=== PATIENT | male | born 1955 | race Caucasian/White ===

== ENCOUNTER → 2023-07-02 10:26 | Outpatient (CLI) | payer MEDICARE, OTHER, SELFPAY ==
[2023-07-02 12:14] LABS: Add Manual Diff / Slide Review NO; Basophils Absolute Auto 0 /uL (0-100); Basophils Percent Auto 1.1 % (0-2); Eosinophils Absolute Auto 100 /uL (0-450); Eosinophils Percent Auto 2.8 % (2-4); Hemoglobin 13.7 g/dL (13.5-17.5); Lymphocytes Absolute Auto 800 /uL (1100-4500); Lymphocytes Percent Auto 17.3 % (25-40); Mean Corpuscular HGB Conc 34.2 % (30-36); Mean Corpuscular Hemoglobin 32.4 PG (26-34); Mean Corpuscular Volume 94.8 fL (80-100); Monocytes Absolute Auto 500 /uL (0-900); Monocytes Percent Auto 11.8 % (3-14); Neutrophils Absolute Auto 3100 /uL (1500-7000); Platelet Count 187 X10^3/uL (150-400); Red Blood Cell Count 4.22 X10^6/uL (4.5-5.9); Red Cell Distribution Width 12.5 % (11.6-14.8); White Blood Cell Count 4.6 X10^3/uL (4.5-11.0)
[2023-07-02 12:28] LABS: BUN Creatinine Ratio 15.3 (6-22); Blood Urea Nitrogen 22 mg/dL (9-20); Calcium 8.8 mg/dL (8.4-10.2); Carbon Dioxide 31 mmol/L (22-32); Chloride 102 mmol/L (98-107); Estimated Glomerular Filt Rate 53 mL/min (>60); Glucose 84 mg/dL (80-110); HEMOLYSIS < 15 (0-50); Potassium 4.5 mmol/L (3.4-5.1); Sodium 137 mmol/L (137-145)
[2023-07-02 13:15] LABS: Appearance Urine UA CLEAR; Bilirubin Urine UA NEGATIVE (NEGATIVE); Color Urine UA YELLOW; Glucose Urine UA NEGATIVE (Negative); Ketones Urine UA NEGATIVE (NEGATIVE); Leukocyte Esterase Urine UA NEGATIVE (NEGATIVE); Nitrite Urine UA NEGATIVE (Negative); Occult Blood Urine UA NEGATIVE (Negative); Protein Urine UA NEGATIVE (Negative); Urobilinogen Urine UA 0.2 E.U./dL (0.2)
[2023-07-02 13:27] LABS: Hemoglobin A1C% w Est Avg Glu 5.4 % (4.0-6.0)
[2023-07-02 13:30] LABS: Bacteria Urine None Seen; Culture Indicated Urine Cult Not Indicated; RBC Urine None Seen (0-5/HPF); Squamous Epithelial Cell Urine None Seen (0-5/HPF); Urine Comments Microscopic Normal; WBC Urine None Seen (0-5/HPF)
== END ==
PROVIDERS: Referring Provider Orthopaedic Surgery; Visit Provider Orthopaedic Surgery
DX: Z01.818 Encounter for other preprocedural examination (principal); R73.9 Hyperglycemia, unspecified; Z01.812 Encounter for preprocedural laboratory examination; N39.0 Urinary tract infection, site not specified
CPT/HCPCS: 36415; 80048; 81001; 83036; 85025; 93005

== ENCOUNTER → 2023-07-28 12:01 | Outpatient (CLI) | payer MEDICARE, OTHER, SELFPAY ==
[2023-07-28 13:13] LABS: Add Manual Diff / Slide Review NO; Basophils Absolute Auto 100 /uL (0-100); Basophils Percent Auto 1.3 % (0-2); Eosinophils Absolute Auto 200 /uL (0-450); Eosinophils Percent Auto 3.8 % (2-4); Lymphocytes Absolute Auto 800 /uL (1100-4500); Lymphocytes Percent Auto 19.9 % (25-40); Mean Corpuscular HGB Conc 33.4 % (30-36); Mean Corpuscular Volume 95.7 fL (80-100); Monocytes Absolute Auto 500 /uL (0-900); Monocytes Percent Auto 12.1 % (3-14); Neutrophils Absolute Auto 2600 /uL (1500-7000); Neutrophils Percent Auto 62.9 % (50-75); Platelet Count 198 X10^3/uL (150-400); Red Blood Cell Count 4.38 X10^6/uL (4.5-5.9); Red Cell Distribution Width 12.9 % (11.6-14.8); White Blood Cell Count 4.2 X10^3/uL (4.5-11.0)
[2023-07-28 13:45] LABS: Alanine Aminotransferase 22 IU/L (<50); Albumin 4.2 g/dL (3.5-5.0); Albumin Globulin Ratio 1.6 (1.0-2.8); Alkaline Phosphatase 65 U/L (38-126); Aspartate Aminotransferase 26 IU/L (17-59); BUN Creatinine Ratio 16.5 (6-22); Bilirubin Total 0.5 mg/dL (0.2-1.3); Blood Urea Nitrogen 21 mg/dL (9-20); Calcium 9.3 mg/dL (8.4-10.2); Carbon Dioxide 30 mmol/L (22-32); Chloride 101 mmol/L (98-107); Cholesterol 185 mg/dL (140-199); Estimated Glomerular Filt Rate > 60 mL/min (>60); Globulin 2.6 g/dL (1.7-4.1); Glucose 86 mg/dL (80-110); HDL Cholesterol 95 mg/dL (40-60); HEMOLYSIS < 15 (0-50); LDL Cholesterol Calculated 71 mg/dL (<100); Potassium 4.7 mmol/L (3.4-5.1); Sodium 138 mmol/L (137-145); Total Protein 6.8 g/dL (6.3-8.2); Triglycerides 97 mg/dL (35-150)
== END ==
PROVIDERS: PCP Family Medicine; Referring Provider Family Medicine; Visit Provider Family Medicine
DX: Z00.00 Encounter for general adult medical examination without abnormal findings (principal); Z12.5 Encounter for screening for malignant neoplasm of prostate
CPT/HCPCS: 36415; 80053; 80061; 85025; G0103

== ENCOUNTER 2023-09-23 07:57 | Day surgery (SDC) | payer MEDICARE, OTHER, SELFPAY ==
[2023-09-16 09:30] VITALS: BMI 20.2
[2023-09-23] VITALS (12 sets, daily range): BP systolic 103–144; BP diastolic 53–74; PULSE 60–88; RESP 12–98; TEMP 36.2–36.8; O2SAT 14–100; BMI 20.2
[2023-09-23] MEDS: ACETAMINOPHEN 325 MG TABLET 975 MG PO (08:23)
[2023-09-23] MEDS: LACTATED RINGERS 1,000 ML 42 ML IV ×3 (08:37→12:11)
[2023-09-23] MEDS: VANCOMYCIN 1,000 MG/200 ML PIGGYBACK 200 MG IV (09:17)
--- NOTE | 2023-09-23 09:35 | P.OP_ITS ---
Operative Date/Time/Diagnoses Date of procedure: 09/23/23 Time of procedure: 10:30 Pre-op diagnosis: Left hip osteoarthritis severe Post-op diagnosis: same Procedure & Clinicians Procedure: Left total hip arthroplasty anterior approach Same procedure as scheduled: Yes Indications: The patient has had progressively worsening left hip pain with radiographic changes consistent with arthritis. Non-operative management has failed and the patient has requested total hip replacement. The risks, benefits and alternatives to surgery were discussed with the patient prior to proceeding. Risks discussed included, but were not limited to, failure to relieve pain, leg length discrepancy, dislocation, stiffness, infection, nerve damage, deep venous thrombosis, pulmonary embolism, stroke, coma, heart attack, permanent paralysis and , as well as the potential need for eventual revision of the prosthetic. Surgeon: Adelita Victor Chief Telephone Operator: Franko Perez Anesthesia Type: General and Spinal Operative Notes Findings: Severe left hip OA, adequate bone, adequate stability Closure Type: primary Specimen(s): none sent Prosthetic devices, grafts, tissues, transplants, or devices: Victor and nephew 64 R3, neutral poly liner,two 6.5 mm screws, polar stem lateral with collar size 7, 40 +8 Oxinium head Estimated Blood Loss (mL): 250 Blood products transfused: none Procedure in detail: The patient was brought to the operating room. Patient was carefully positioned in the supine position. Time-out was performed and antibiotics were given. Anesthesia was induced. He was positioned in the on the table in order to allow hyperextension of the hip. The left lower extremity was prepped and draped in a standard sterile fashion. An anterior left hip incision was made 1 fingerbreadth lateral to the anterior superior iliac spine and extended distally towards the greater trochanter. Dissection was carried out through skin and subcutaneous tissues. Superficial hemostasis was achieved. The fascia over the tensor fascia alexey was defined and incised with a knife. Two Allis clamps were used to grasp the fascia. Tensor fascia alexey was retracted laterally. A gelpi retractor was placed. Dissection was carried out down along the neck. The circumflex vessels were carefully identified and cauterized with the Aqua Mantis. A PA was used during the procedure and was essential for intraoperative retraction and safe implantation of the components. There was good visualization of the femoral neck. A Cobra was placed superior to the neck and the gluteus fibers were carefully stripped from that superior a spect of the capsule. A 2nd retractor was placed along the inferior aspect of the neck. The rectus insertion along the capsule was partially released. A 3rd retractor that was then gently placed over the rim of the acetabulum under the rectus. Capsule was carefully incised and released from the intertrochanteric line circumferentially superior to the mid sagittal line and inferiorly to the mid sagittal line until the lesser trochanter was palpable. A tag stitch was placed both in the superior and inferior limb of the capsular insertion. Along the acetabulum capsule was also released up to the mid sagittal 12:00 position. A portion of the labrum was resected. A saw was used to perform an osteotomy at the level of the intertrochanteric line and the junction of the superior femoral neck leaving approximately 1 finger breath of residual inferior neck above the lesser trochanter. A 2nd cut was made along the femoral neck at the base of the head and a napkin ring of neck was removed. Corkscrew was placed in the femoral head and the head was removed without difficulty. Retractors were then repositioned around the acetabulum. Residual labrum was resected and additional osteophytes were removed. A reamer that was 4 mm below the templated size was placed by hand in the acetabulum and it was reamed to centralize the acetabulum. It was then reamed up to 2 under the templated size and fluoroscopy was brought in to confirm the position of the reaming and depth of reaming. I reamed 1 under the anticipated size. A trial cup was placed and noted that it was appropriately sized and fluoroscopy confirmed position and depth. The component was open and inserted without difficulty fluoroscopic imaging was used to confirm that the cup had been adequately seated and was well positioned. It was further stabilized with two screws. Neutral poly liner was placed. The cup was tested and noted to be stable. Attention was then directed to the femur. The femur was gently hyperextended additional capsular release was performed as needed in order to allow adequate visualization of the proximal femur with elevation of the femur. Patient was placed in a hyperextended slightly adducted position with maximum external rotation. Box osteotome was used to check for any residual neck as well as sclerotic bone along the trochanter. [place] pepper was placed in the femur. Additional broaching was performed. Canal finder was used to determine the alignment of the canal and position. Size 1 broach was placed. The canal was then appropriately broached up to the templated size as long as there was adequate stability of the broach and serial advancement of the broach without excessive impingement. Specific attention was directed at avoiding varus attempting to direct the distal aspect of the broach more anteriorly and avoiding excessive anteversion. Trial reduction showed acceptable range of motion, good stability, no posterior impingement, nondenominational of leg length and appropriate lateral shuck. I also hyperflexed the hip and checked that there was no impingement anteriorly and there was good stability with flexion, adduction and internal rotation. The stem was placed without difficulty. Repeat trial reduction and x-ray showed acceptable overall position, length, and no evidence of the femoral fracture. Final head was placed. Wound was meticulously irrigated with normal saline. The hip was reduced and additional Exparel and Marcaine were injected. The capsule was closed with interrupted nonabsorbable sutures. The fascia of the tensor was closed with interrupted and running Vicryl. No drain was placed. Any tensor fascia alexey muscle that appeared to be contused or injured which was a minimal amount was carefully resected. Capsule around the tensor was injected with Exparel and Marcaine. The skin was closed with barbed stitches for the subcutaneous tissue and skin. We also used surgical glue. The wound was dressed sterilely. Brief Betadine soak was also used and was meticulously irrigated with normal saline. Patient was transferred to recovery room in satisfactory condition. Complications: none Post-operative Condition: stable Disposition: Acute Care Plan for aftercare: The patient will be maintained on a standard total hip replacement protocol with weight bearing as tolerated and anterior hip precautions. The patient will receive Aspirin and sequential compression devices for DVT prophylaxis. The patient will be discharged home when safe for the home environment.
--- NOTE | 2023-09-23 09:35 | PM.PREOP ---
Pre-operative Note Interval Note History & Physical reviewed/Exam performed by Physician: Yes Changes to H&P: No
[2023-09-23] MEDS: CEFAZOLIN 2 GM/100 ML PREMIX 100 ML IV (10:25)
[2023-09-23] MEDS: TRANEXAMIC ACID 1,000 MG VIAL 1000 MG INJ (10:30)
--- NOTE | 2023-09-23 10:50 | SUR.OPER ---
Supine on padded [place] table with bilateral legs secured in padded positioning boots and suspended in positioning spars, operative leg in traction per surgeon. Head on one pillow. Arm on non-operative side secured on padded armboard <90 degrees abduction. Arm on operative side padded and resting across chest then secured with tape over sheet. Padded perineal post in place per surgeon.
[2023-09-23] MEDS: BUPIVACAINE LIPOSOME 266 MG/20 ML VIAL INJ (10:54)
[2023-09-23] MEDS: BUPIVACAINE 0.25% (PF) 60 ML, EPINEPHrine 0.3 MG INJ (10:55)
--- NOTE | 2023-09-23 13:00 | DI.RAD.S_ITS ---
PATIENT NAME: CHAGO BENSON : 1955 EXAM DATE: 09/23/2023 13:[address] RODOLFO GUZMAN CC: ROMAINE NOGUERA M.D. MODALITY: CR PATIENT TYPE: Out CONTRAST MEDIA: STATION ID: [id number] FLUORO TIME: PROCEDURE: XR HIP W PEL IF DONE LT 2V INDICATIONS: POST OP ANTERIOR LEFT HIP TECHNIQUE: AP pelvis and lateral view of the left hip acquired. COMPARISON: [facility], , XR HIP W PEL IF DONE LT 2V, 09/23/2023, 11:26. FINDINGS: Bones: Patient is status post left hip arthroplasty, with hardware components in expected positions. The hip joint appears congruent. The visualized bony structures appear intact. Moderate to severe right hip arthritic changes Soft tissues: Overlying postoperative changes are noted. No suspicious soft tissue densities. IMPRESSION: Expected post-operative appearance of a hip arthroplasty. Approved by: Chago Guerrero M.D. on 09/23/2023 at 14:06
[2023-09-23] MEDS: HYDROMORPHONE 1 MG INJ IV ×4 (13:06→13:50)
[2023-09-23] MEDS: OXYCODONE IR 5 MG TABLET PO (13:19)
--- NOTE | 2023-09-23 13:30 | DI.RAD.S_ITS ---
PROCEDURE: XR HIP W PEL IF DONE LT 2V INDICATIONS: POST OP ANTERIOR LEFT HIP TECHNIQUE: AP pelvis and lateral view of the left hip acquired. COMPARISON: [facility], MICHAEL, XR HIP W PEL IF DONE LT 2V, 09/23/2023, 11:26. FINDINGS: Bones: Patient is status post left hip arthroplasty, with hardware components in expected positions. The hip joint appears congruent. The visualized bony structures appear intact. Moderate to severe right hip arthritic changes Soft tissues: Overlying postoperative changes are noted. No suspicious soft tissue densities. IMPRESSION: Expected post-operative appearance of a hip arthroplasty. Approved by: Chago Guerrero M.D. on 09/23/2023 at 14:06
--- NOTE | 2023-09-23 13:47 | SUR.PHASEI ---
Pt on IV bag #3. Attempted to void without success. Bladder scan for 904ml. Straight cathed for 900ml clear yellow urine.
--- NOTE | 2023-09-23 14:12 | SUR.PHASEI ---
Report called to SHAWN Gautam. 2 belonging bags and walker brought to room. glasses returned to pt.
[2023-09-23] MEDS: ACETAMINOPHEN 325 MG TABLET 650 MG PO (14:53)
[2023-09-23] MEDS: IBUPROFEN 400 MG TABLET PO ×2 (14:54→18:16)
--- NOTE | 2023-09-23 15:12 | PC.NURSE ---
Pt to room 217 via bed from PACU. Pt is awake, alert, and oriented. Pt states pain to his left hip is 4/10 and improving. Ice pack to left hip. Aquacell to left hip cdi with single dot of shadow drainage to upper portion. Pt is now eating a yogurt and has fresh water to drink. Pt denies nausea or shortness of breath. O2 sat 100% on RA. Pt oriented to room, call light, bed controls, and tv controls. SCD's on and running. IVF infusing as ordered. Bed alarm on for safety. Pt agrees to call for assistance as needed.
--- NOTE | 2023-09-23 15:49 | OT.IP.EVAL ---
Current Diagnoses Unilateral primary osteoarthritis, left hip (09/23/23) Surgery Performed Operation Date: 09/23/23 10:15 Actual Procedures p Total Hip Arthroplasty/Anterior Approach(Left) - Adelita Victor MD Past Medical History (Last Updated 09/16/23 @ 10:13 by Juani Campo, RN) BCC (basal cell carcinoma) History of COVID-19 (04/2022) Measles (~1960) Osteoarthritis (~2014) Rheumatoid arthritis (~2014) Surgical History (Last Updated 09/16/23 @ 10:06 by Juani Campo RN) Anesthesia History of fusion of cervical spine History of hernia repair History of tracheostomy as a child Occupational Therapy Inpatient Evaluation/Re-Eval M1 PT/OT-IP Prior Functional Status Start: 09/23/23 16:17 Freq: NEEDED Status: Active Protocol: Document 09/23/23 15:49 [facility] (Rec: 09/23/23 16:29 [facility] [id number]) Medical Review Prior Functional Status Medical History Reviewed Yes Diet/Fluid Consistency Regular Communication Pt is able to express all needs. Mobility and Gait Pt ambulated IND, but was sometimes limited in walking distance by hip pain. Activities of Daily Living and IADL's Able to perform all ADLs and IADLs. Social History Household Members none Living Arrangements House Number of Floors (Floors) One Floor Number of Stairs To Enter/Railing? 3 steps with bilateral hand rails for porch then 2 MAREK with left hand rail Home Environment High Toilet,Tub/Shower Home Equipment Front Wheel Walker,Straight Cane,Raised Toilet Seat w/ Armrests,Shower Seat without Backrest,Hand Held Shower Additional Social History Comment Pt reports a friend will be assisting him with IADLs. M2 OT-IP Current Condition Start: 09/23/23 16:17 Freq: Status: Active Protocol: Document 09/23/23 15:49 [facility] (Rec: 09/23/23 16:29 [facility] [id number]) Occupational Therapy Current Condition Current Condition Evaluation Date 09/23/23 Treatment Diagnosis S/P LTHA Anterior Diagnosis Onset Date 09/23/23 Post Operative Precautions Anterior Hip Precautions No Hip Extension,No Hip External Rotation M3 OT- IP Subjective and Pain Start: 09/23/23 16:17 Freq: Status: Active Protocol: Document 09/23/23 15:49 [facility] (Rec: 09/23/23 16:29 [facility] [id number]) OT- Subjective Occupational Therapy Visit Type Type Initial Evaluation Visit Start Time 15:49 Visit Stop Time 16:05 Total Visit Minutes 16 Occupational Therapy Visit Comments Patient Comments Pt sitting on the toilet when OT came to see pt as pt just completed seeing PT. Patient/Caregiver Goals To go home. OT Pain Assessment Pain When Pain Assessed During Mobility Pain Present Pain Present Pain Reported Location *left hip Intensity 2 Scale Used Numeric (0 - 10) M4 OT- IP ADL's Start: 09/23/23 16:17 Freq: Status: Active Protocol: Document 09/23/23 15:49 [facility] (Rec: 09/23/23 16:29 [facility] [id number]) OT GMM-Ulay-Mfhddre General Evaluation Self-Feeding Ability Independent OT ADL-Grooming Comments OT Grooming Comments Not performed. OT ADL-Oral Care Comments Oral Care Comments Not performed. OT ADL-Dressing Comments OT Dressing Comments Pt still a little numb and needing use of his right hand to help lift up his RLE at this time. Pt able to bend over to reach his socks appropriately at this time. OT ADL-Toileting Comments OT Toileting Comments Pt not been able to urinate since being cathed post op per pt. M5 OT- IP IADL's Start: 09/23/23 16:17 Freq: Status: Active Protocol: Document 09/23/23 15:49 [facility] (Rec: 09/23/23 16:29 [facility] [id number]) OT-Instrumental Activities of Daily Living Deficits IADL Deficits Identified Deficits Home Safety Awareness Awareness of Need for Assistance at Home Good Awareness Ability to Problem Solve Emergency Able to Problem Solve Situations Medication Management Medication Management No Deficits Identified Money Management Money Management No Deficits Identified Meal Preparation Meal Preparation Comments Pt states has a small kitchen and will be able to reach items appropriately. Machine Tech Machine Tech Comments Pt's friend to assist. M6 OT- IP Functional Cognition Start: 09/23/23 16:17 Freq: Status: Active Protocol: Document 09/23/23 15:49 [facility] (Rec: 09/23/23 16:29 [facility] [id number]) Cognitive Factors Limiting Selfcare Function Cognitive Ability Level of Alertness Alert Patient Orientation Name,Age,Birthday,Month,Date, Year,Day of Week,Place, Situation Attention Span Ability Capable of Focused Attention, Capable of Sustained Attention Ability to Follow Commands Able to Follow Multi-Step Commands Memory Description No Deficits Noted Safety Awareness No Deficits Noted Cognitive Comments Cognitive Assessment Comments Pt intact. OT- Vision and Hearing OT- Hearing Assessment OT- Hearing Assessment WFL OT- Vision Assessment Visual Acuity Glasses All The Time M7 OT- IP Mobility and Balance Start: 09/23/23 16:17 Freq: Status: Active Protocol: Document 09/23/23 15:49 [facility] (Rec: 09/23/23 16:29 [facility] [id number]) OT-Transfer Assessment Sit to and From Stand Sit to and from Stand Standby Assistance Transfers Transfer Ability Standby Assistance Technique Transfer Destination Bed,Toilet Transfer Technique Stand Step Pivot Devices Transfer Assistive Devices Gait Belt,Front Wheeled Walker Comments Mobility Comments SBA to come to stand and walk to the bed to sit down with the FWW. OT- Balance Assessment Sitting Balance and Reactions Static Sitting Balance Ability Normal Dynamic Sitting Balance Ability Normal Standing Balance and Reactions Static Standing Balance Ability Normal Dynamic Standing Balance Ability Good M9 OT- IP Assessment and Plan Start: 09/23/23 16:17 Freq: Status: Active Protocol: Document 09/23/23 15:49 [facility] (Rec: 09/23/23 16:29 [facility] [id number]) OT Summary Assessment and Plan Potential Rehabilitation Potential Excellent Analytic Complexity at Evaluation Low Summary OT Impairments Pain,Balance,Functional Mobility,Dressing,Toileting, Bathing,Shower Transfers Progress Towards Goals Progressing Toward Goals,Slow Progress due to Medical Issues Assessment Summary Pt low complexity and main barrier are pt still feeling numb in perineal area and decreased movement to lift his RLE up for dressing needs and needing use of his hands to assist at this time. Pt states does not have the sensation to urinate at this time. Pt states was cathed earlier in the post op. Pt has good understanding for his hip precautions. Pt to go home with assist and outpt PT when medically stable . Goals Dressing Goal Independent Toileting Goal Independent Bathing Goal Independent Toilet Transfer Goal Independent Shower Transfer Goal Independent Days to Meet Goals 2 Frequency of Treatment Frequency Of Treatment Once a Day Discharge Recommendations OT Discharge Recommendations Home with Assistance, Outpatient PT Transportation Needs at Discharge Private Vehicle
--- NOTE | 2023-09-23 15:49 | PT.IIE ---
Current Diagnoses Unilateral primary osteoarthritis, left hip (09/23/23) Surgery Performed Operation Date: 09/23/23 10:15 Actual Procedures p Total Hip Arthroplasty/Anterior Approach(Left) - Adelita Victor MD Surgical History (Last Updated 09/16/23 @ 10:06 by Juani Campo, RN) Anesthesia History of fusion of cervical spine History of hernia repair History of tracheostomy as a child Medical History (Last Updated 09/16/23 @ 10:13 by Juani Campo RN) BCC (basal cell carcinoma) History of COVID-19 (04/2022) Measles (~1959) Osteoarthritis (~2014) Rheumatoid arthritis (~2014) Physical Therapy Inpatient Evaluation/Re-Eval M1 PT/OT-IP Prior Functional Status Start: 09/23/23 15:52 Freq: NEEDED Status: Active Protocol: Document 09/23/23 15:53 AB (Rec: 09/23/23 16:14 AB [id number]) Medical Review Prior Functional Status Medical History Reviewed Yes Diet/Fluid Consistency Regular Communication Pt is able to express all needs. Mobility and Gait Pt ambulated IND, but was sometimes limited in walking distance by hip pain. Activities of Daily Living and IADL's Able to perform all ADLs and IADLs. Social History Household Members none Living Arrangements House Number of Floors (Floors) One Floor Number of Stairs To Enter/Railing? 3 steps with bilateral hand rails for porch then 2 MAREK with left hand rail Home Environment High Toilet,Tub/Shower Home Equipment Front Wheel Walker,Straight Cane,Raised Toilet Seat w/ Armrests,Shower Seat without Backrest,Hand Held Shower Additional Social History Comment Pt reports a friend will be assisting him with IADLs. M2 PT-IP Current Condition Start: 09/23/23 15:52 Freq: NEEDED Status: Active Protocol: Document 09/23/23 15:53 AB (Rec: 09/23/23 16:14 AB [id number]) Physical Therapy Current Condition Current Condition Evaluation Date 09/23/23 Treatment Diagnosis s/p left anterior ALISON Onset Date 09/23/23 M3 PT-IP Subjective Start: 09/23/23 15:52 Freq: NEEDED Status: Active Protocol: Document 09/23/23 15:53 AB (Rec: 09/23/23 16:14 AB [id number]) Subjective Physical Therapy Visit Type Type Initial Evaluation Visit Start Time 15:09 Visit Stop Time 15:49 Total Visit Minutes 40 Physical Therapy Visit Comments Patient Comments Pt presents long sitting in bed after handoff from RN. He is agreeable to PT, and denies symptoms but reports he continues with a lot of numbness in his buttocks/hip/ groin. Therapy Pain Assessment Pain When Pain Assessed During Mobility Pain Present Pain Present Denied Pain M4 PT-IP Mobility and Gait Start: 09/23/23 15:52 Freq: NEEDED Status: Active Protocol: Document 09/23/23 15:53 AB (Rec: 09/23/23 16:14 AB [id number]) PT-Bed Mobility Assessment Supine to Sit Supine to Sit Independent Scooting Scooting to Edge of Bed Independent PT-Transfer Assessment Sit to and From Stand Sit to and from Stand Standby Assistance,Use of Upper Extremities Equipment Transfer Assistive Device Gait Belt,Front Wheeled Walker Transfers Transfer Destination Toilet Transfer Technique ambulated Transfer Ability Level of Assist Standby Assistance,Use of Upper Extremities Comments Mobility Comments The pt was positioned supine in bed, where BP is 124/59 mmHg. The pt performed bed mobility with independence while maintaining precautions. Once at EOB, the pt's BP is 110/61 and pt is asymptomatic. The pt performs STS with FWW and SBA and verbal cues for proper hand placement. In standing, the pt's BP is 120/ 74 and again denies symptoms. The pt ambulated 90ft with FWW and SBA, with PT providing cues regarding hip precautions while ambulating as well as proper use of FWW. The pt then performed 2x3 steps and ambulated 80ft back to room with SBA and FWW. Upon returning to room, the pt ambulated to toilet and performed stand to sit with SBA and grab bar. OT then entered room to perform eval, and pt was handed off to OT. RN was notified of findings. Gait Assessment Gait Gait Assistance Required: Standby Assistance Distance (Feet) 160 Able to Maintain Weight Bearing Status Yes During Gait Assistive Devices Assistive Device Gait Belt,Front Wheeled Walker Gait Deviations General Gait Pattern Antalgic,Decreased Stride Length,Decreased Feet Clearance,Step-to Gait Factors Limiting Gait Function Factors Limiting Gait Function Decreased Activity Tolerance, Decreased Sensation,Decreased Strength,Limited Range of Motion,Pain Comments Gait Comments See mobility comments. Pt's LLE is positioned in external rotation, though pt reports this is normal for him. Pt is able to maintain hip precautions after education. Stair Climbing Assessment Evaluation Level of Assist On Stairs Standby Assistance Devices Stair Climbing Assistive Devices Left Railing,Right Railing Technique/Endurance Stair Climbing Direction Ascend and Descend Stair Climbing Technique Step to Step Number of Steps Climbed 3 Query Text: Stair Climbing Set # Repetitions (reps) 2 Comments Stair Climbing Comments Pt ascended/descended 3 steps using bilateral hand rails and then 3 steps using left hand rail to simulate home environment. PT-Balance Assessment Sitting Balance and Reactions Static Sitting Balance Ability Normal Dynamic Sitting Balance Ability Normal Standing Balance and Reactions Static Standing Balance Ability Normal Dynamic Standing Balance Ability Good Device Used FWW M5 PT-IP Objective Assessments Start: 09/23/23 15:52 Freq: NEEDED Status: Active Protocol: Document 09/23/23 15:53 AB (Rec: 09/23/23 16:14 AB [id number]) Orientation Orientation/Cognition Level of Alertness Alert Orientation Name,Age,Birthday,Month,Date, Year,Day of Week,Place, Situation Language Function Ability No Deficits Noted Safety Awareness Understands Safety Issues Memory Description No Deficits Noted Gross Range of Motion Upper Extremity ROM Assessment Within Functional Limits Lower Extremity ROM Assessment Left Impaired Strength Upper Extremity Strength Assessment Within Functional Limits Lower Extremity Strength Assessment Left Impaired M6 PT-IP Treatment Start: 09/23/23 15:52 Freq: NEEDED Status: Active Protocol: Document 09/23/23 15:53 AB (Rec: 09/23/23 16:14 AB [id number]) Physical Therapy Treatment Education Education Provided Precautions,Weight Bearing Status,Post-Op Packet,Safety Brace Education Patient M7 PT-IP Assessment and Plan Start: 09/23/23 15:52 Freq: NEEDED Status: Active Protocol: Document 09/23/23 15:53 AB (Rec: 09/23/23 16:14 AB [id number]) PT Summary Assessment and Plan Potential Rehabilitation Potential Excellent Status of Condition at Evaluation Stable Summary Impairments Pain,ROM,Strength,Balance, Sensation,Cognition,Bed Mobility,Transfers,Gait, Activity Tolerance Assessment Summary Chago Kearns is a 68 year old male patient who is s/p left anterior ALISON performed on . The pt is able to perform bed mobility independently, but required SBA and PT to provide verbal cues and education for STS, transfers, ambulation and stairs. The pt is able to ambulate 160ft with FWW, and ascends/descends 6 steps. Based on the pt's current level of function, PT recommends discharge home with assistance and outpatient pt to improve post operative outcomes. The pt would benefit from skilled PT until discharge to improve to his highest level of function. Goals Bed Mobility Goal Independent Transfer Goal Independent,Front Wheeled Walker Gait Goal Independent,Front Wheel Walker Gait Distance 300 Other Goals Pt to ambulate 300ft with Christine /independence using LRAD or no AD to show improving tolerance to activity. Pt to ascend/descend 3 steps with 2 hand rails and 3 steps with 1 hand rail independently to show improving LE strength . Days to Meet Goals 5 Frequency of Treatment Frequency Of Treatment Twice a Day Treatment Plan Physical Therapy Treatment Plan Bed Mobility Training,Transfer Training,Gait Training, Therapeutic Exercise,Balance Retraining,Post Op Education, Discharge Planning,Hot or Cold Pack,Neuromuscular Re-ed, Coordination Retraining,Manual Therapy Precautions Anterior Hip Precautions No Hip Extension,No Hip External Rotation Weight Bearing Status Weight Bearing Status Weight Bear as Tolerated Recommendations To Nursing Amount of Assist Needed Standby Assistance Discharge Recommendations PT Discharge Recommendations Home with Assistance, Outpatient PT Transportation Needs at Discharge Private Vehicle
--- NOTE | 2023-09-23 18:37 | PC.NURSE ---
Pt is dressed and ready for discharge home with Friend Laura. IV has been removed. Went over d/c instructions with Pt and Friend. Discussed d/c meds, time of last dose, reviewed stroke education, s/s of infection, showering, maintaining dsg, drinking plenty of fluids to prevent constipation or dehydration, no driving until cleared by his doctor, and follow up as directed. Pt denied further questions and was taken out via w/c by CHAIR UPHOLSTERER to POV with friend and all belongings.
== END 2023-09-23 18:44 | disposition home or self-care (01) ==
LOC: OR 08:00 → AC 08:01
PROVIDERS: PCP Family Medicine; Referring Provider Orthopaedic Surgery; Visit Provider Orthopaedic Surgery
PROC: (CPT 27130; principal; 2023-09-23 10:15)
DX: M16.12 Unilateral primary osteoarthritis, left hip (principal)
CPT/HCPCS: 27130; 73502; 76000; 97161; 97165; 97535; C1776; C9290; J0171; J0690; J1100; J1170; J2405; J2704

== ENCOUNTER 2024-08-10 12:13 | Day surgery (SDC) | payer MEDICARE, OTHER, SELFPAY ==
[2023-09-23 14:40] VITALS: BMI 20.2
--- NOTE | 2024-08-10 | PATH_ITS ---
[facility] Accession Number: [id number] No. of containers..01 Tissue . 01 Material submitted: . colon - DESCENDING COLON POLYP . 01 Diagnosis: DESCENDING COLON POLYP: Tubular adenoma. STO 08/12/2024 1530 Local . 01 Electronically signed: . Eliud Chavis MD, Pathologist NPI- [id number] . 01 Gross description: . DESCENDING COLON POLYP: Received in formalin is 1 fragment(s) of cummings, soft tissue measuring 0.5 x 0.4 x 0.1 cm submitted entirely in 1 cassette(s) /FIDELINA 08/12/2024 1530 Local . 01 Pathologist provided ICD-10: D12.4 . 01 CPT . 407614 Specimen Comment: A courtesy copy of this report has been sent to [phone] Performed at: [address] [facility] [id number] MD Eliud Chavis MD Phone: [phone]
--- NOTE | 2024-08-10 12:29 | PM.HP.1 ---
History of Present Illness History of Present Illness Date Patient Seen: 08/10/24 Time Patient Seen: 12:29 Chief complaint: Colonoscopy Narrative: 69-year-old man here for 1st time screening colonoscopy. No family history of colon cancer. Occasional rectal bleeding. [facility] Medical History BPH (benign prostatic hyperplasia) History of COVID-19 (04/2022) BCC (basal cell carcinoma) Rheumatoid arthritis (~2014) Osteoarthritis (~2014) Measles (~1960) Surgical History History of tracheostomy as a child History of fusion of cervical spine Anesthesia History of hernia repair Family History Brother Cancer Social History household members: none Smoking Status: Former smoker alcohol intake: former Meds Home Medications and Allergies Home Medications Medication Instructions Recorded Confirmed Type tamsulosin 0.4 mg capsule 0.4 mg PO BEDTIME #90 caps 08/26/23 08/10/24 Rx oxybutynin chloride 5 mg 5 mg PO BEDTIME #90 tabs 10/22/23 08/10/24 Rx tablet,extended release 24 hr Allergies Allergy/AdvReac Type Severity Reaction Status Date / Time No Known Drug Allergies Allergy Verified 08/10/24 12:42 Exam Narrative Exam Narrative: General adult man alert oriented no acute distress Chest nonlabored respiration Extremities warm well perfused Assessment & Plan Assessment & Plan narrative: The patient requires colorectal screening and colonoscopy is recommended. Technical details were discussed. Risks, benefits, alternatives explained. Risks including but not limited to myocardial infarction, aspiration, bleeding, pain, missed lesion, incomplete examination, need for further radiographic studies, intestinal injury, and need for major abdominal surgery were discussed. All questions were answered to their satisfaction, and they are in agreement with this plan. Time-Based Coding :: [TOTAL MINUTES] spent with patient and on the chart (including review of chart, obtaining history, exam, reviewing outside data, placing orders, documenting exam and treatment plan, and counseling patient) on [DATE].
--- NOTE | 2024-08-10 12:39 | P.OP.COLON_ITS ---
Operative Date/Time/Diagnoses Date of procedure: 08/10/24 Time of procedure: 12:39 Pre-op diagnosis: Colorectal screening Procedure & Clinicians Study performed: Screening colonoscopy Same procedure as scheduled: Yes Indications: Screening Surgeon: Stone Watson Procedure Notes Procedure in detail: The history and physical was performed/updated and the patient is ASA class is 2. The procedure was discussed in detail with the patient. Potential risks complications including infection, bleeding, missed diagnosis, perforation, need for surgery, and were explained. Their questions were answered and informed consent was obtained. Patient was brought to the procedure room and placed standard monitoring equipment. The patient's vital signs were monitored continuously throughout the entire procedure. Prior to starting time-out was performed. The patient was placed in the left lateral recumbent position. Procedural sedation was administered by anesthesia. Examination began with a thorough inspection of the perianal area there was no evidence of fissures, fistulae, external hemorrhoids or cutaneous malignancy. The colonoscopy scope was then placed into the anal canal and was advanced to the cecum, which was identified by the ileocecal valve, the appendiceal orifice and the confluence of the taenia. The scope was then slowly withdrawn examining colon thoroughly in all directions, irrigating it of any residual stool. The scope was retroflexed within the rectum The patient tolerated the procedure well. They will be discharged once criteria are met. The prep was of good/excellent quality. The withdrawl time was 9 minutes. FINDINGS * 3 mm descending colon polyp removed with forceps Specimen(s): other (descending colon polyp) Impression: colonic polyp x 1 Post-procedure Plan for aftercare: Follow up dependent on pathology findings Disposition: same day surgery
[2024-08-10] MEDS: LACTATED RINGERS 1,000 ML 42 ML IV (12:40)
[2024-08-10 12:52] VITALS: BP 123/72; PULSE 66; RESP 12; TEMP 36.3; O2SAT 100
[2024-08-10 13:44] VITALS: BP 96/57; PULSE 56; RESP 12; TEMP 36.2; O2SAT 96
[2024-08-10 13:50] VITALS: BP 93/57; PULSE 70; RESP 12; O2SAT 99
[2024-08-10 13:53] VITALS: BP 98/56; PULSE 65; RESP 13; TEMP 36.3; O2SAT 98
== END 2024-08-10 14:10 | disposition home or self-care (01) ==
PROVIDERS: PCP Family Medicine; Referring Provider Surgery; Visit Provider Surgery
PROC: 0DJD8ZZ Inspection of Lower Intestinal Tract, Via Natural or Artificial Opening Endoscopic (ICD-10-PCS; CPT 45378; principal; 2024-08-10 13:45)
DX: Z12.11 Encounter for screening for malignant neoplasm of colon (principal); D12.4 Benign neoplasm of descending colon
CPT/HCPCS: 45380; J2704

== ENCOUNTER → 2025-01-22 09:18 | Outpatient (CLI) | payer MEDICARE, OTHER, SELFPAY ==
[2023-09-23 14:40] VITALS: BMI 20.2
[2025-01-22 10:53] LABS: Hematocrit 42.1 % (41-53); Hemoglobin 14.1 g/dL (13.5-17.5); Mean Corpuscular HGB Conc 33.5 % (30-36); Mean Corpuscular Hemoglobin 31.7 PG (26-34); Mean Corpuscular Volume 94.6 fL (80-100); Platelet Count 193 X10^3/uL (150-400); Red Blood Cell Count 4.45 X10^6/uL (4.5-5.9); Red Cell Distribution Width 13.2 % (11.6-14.8)
[2025-01-22 11:40] LABS: Alanine Aminotransferase 39 IU/L (<50); Albumin 4.2 g/dL (3.5-5.0); Albumin Globulin Ratio 1.7 (1.0-2.8); Alkaline Phosphatase 66 U/L (38-126); Aspartate Aminotransferase 38 IU/L (17-59); BUN Creatinine Ratio 16.4 (6-22); Bilirubin Total 0.6 mg/dL (0.2-1.3); Blood Urea Nitrogen 21 mg/dL (9-20); Calcium 9.1 mg/dL (8.4-10.2); Carbon Dioxide 31 mmol/L (22-32); Chloride 102 mmol/L (98-107); Cholesterol 184 mg/dL (140-199); Estimated Glomerular Filt Rate > 60 mL/min (>60); Globulin 2.5 g/dL (1.7-4.1); Glucose 86 mg/dL (80-110); HDL Cholesterol 95 mg/dL (40-60); HEMOLYSIS < 15 (0-50); LDL Cholesterol Calculated 73 mg/dL (<100); Potassium 4.6 mmol/L (3.4-5.1); Sodium 138 mmol/L (137-145); Total Protein 6.7 g/dL (6.3-8.2); Triglycerides 78 mg/dL (35-150)
[2025-01-22 12:06] LABS: Prostate Specific Antigen Scrn 0.307 ng/mL (0.1-4.0)
[2025-01-22 12:15] LABS: TSH w/ Reflex to FT4 2.02 uIU/mL (0.47-4.68)
== END ==
PROVIDERS: PCP Family Medicine; Referring Provider Family Medicine; Visit Provider Family Medicine
DX: M06.9 Rheumatoid arthritis, unspecified (principal); Z79.899 Other long term (current) drug therapy; Z12.5 Encounter for screening for malignant neoplasm of prostate; N40.1 Benign prostatic hyperplasia with lower urinary tract symptoms; R35.1 Nocturia
CPT/HCPCS: 36415; 80053; 80061; 84443; 85027; G0103

== ENCOUNTER → 2025-01-28 13:43 | Outpatient (CLI) | payer MEDICARE, OTHER, SELFPAY ==
[2023-09-23 14:40] VITALS: BMI 20.2
[2025-01-31 17:09] LABS: Osmolality Urine 615 mOsmol/kg (.)
== END ==
LOC: LAB 13:44
PROVIDERS: PCP Family Medicine; Referring Provider Family Medicine; Visit Provider Family Medicine
DX: N40.0 Benign prostatic hyperplasia without lower urinary tract symptoms (principal); N39.498 Other specified urinary incontinence
CPT/HCPCS: 36415; 83935; 84588